=== PATIENT | female | born 1935 | race Caucasian/White ===

== ENCOUNTER 2021-05-02 16:06 | Emergency (ER) | payer OTHER ==
[~2021-05-02] VITALS: Ht 157.5 cm; Wt 73.0 kg
[2021-05-02] MEDS ORDERED: SULFAMETH/TRIMETH 800/160 MG 1 UDTAB TABLET PO ONE (16:30)
[2021-05-02] MEDS ORDERED: CEPHALEXIN MONOHYDRATE 500 MG CAPSULE PO ONE ×2 (16:30→16:38)
[2021-05-02] MEDS ORDERED: DEXAMETHASONE SOLN 5 MG/5 ML UDC PO ONE (16:30)
[2021-05-02] MEDS ORDERED: CEPH500T PO (16:32)
[2021-05-02] MEDS ORDERED: SULF1TAB48 PO (16:32)
--- NOTE | 2021-05-02 16:33 | NUR ---
TO ER BED 3, C/O INSECT BITES ON LOWER LEG YESTERDAY AND IS NOW SWELLING AND RED, SOME REDNESS ON R LEG, SEEN BY .
[2021-05-02] MEDS ORDERED: DEXAMETHASONE SOD PHOSPHATE 10 MG/ML VIAL ONE (16:37)
[2021-05-02] MEDS ORDERED: SULFAMETH/TRIMETH 800/160 MG 1 UDTAB TABLET ONE (16:38)
[2021-05-02] MEDS ORDERED: DEXAMETHASONE SOLN 5 MG/5 ML UDC ONE (16:41)
[2021-05-02] MEDS ORDERED: PIPERACILLIN /TAZOBACTAM 3.375 G in IV D5W 50 ML IV ONE (17:30)
[2021-05-02] MEDS ORDERED: VANCOMYCIN 1 GM in IV D5W 250 ML IV ONE (17:30)
[2021-05-02 17:43] LABS: BASOPHILS % (AUTO) 0.5 % (0.0-2.0); EOSINOPHILS % (AUTO) 1.2 % (0.0-6.0); HEMATOCRIT 36 % (33-45); HEMOGLOBIN 12.4 g/dL (11.5-14.8); LYMPHOCYTES # (AUTO) 1.3 K/uL (0.8-4.8); LYMPHOCYTES % (AUTO) 14.6 % (20.0-44.0); MEAN CORPUSCULAR HGB CONC 34 g/dl (31.0-36.0); MEAN CORPUSCULAR VOLUME 91 fL (82-100); MONOCYTES % (AUTO) 11.1 % (2.0-12.0); NEUTROPHILS # (AUTO) 6.7 K/uL (1.8-8.9); NEUTROPHILS % (AUTO) 72.6 % (43.0-81.0); PLATELET COUNT (AUTO) 165 K/uL (150-450); RED BLOOD CELL COUNT(AUTO) 3.93 MIL/uL (4.0-5.2); WHITE BLOOD COUNT (AUTO) 9.2 K/uL (4.3-11.0)
[2021-05-02 17:52] LABS: CALCIUM, SERUM 8.7 mg/dL (8.5-10.1); POTASSIUM 3.3 mmol/L (3.5-5.1)
--- NOTE | 2021-05-02 18:33 | NUR ---
[facility] ([facility], [facility]) [phone]
--- NOTE | 2021-05-02 19:44 | NUR ---
COVID SWAB SENT
--- NOTE | 2021-05-02 20:18 | NUR ---
FERNANDO VERDINP CONTACTED REGARDING TRANSFER
--- NOTE | 2021-05-02 20:38 | NUR ---
ARON LOWERY TALKING TO FERNANDO LOUIS MD REGARDING PT.
--- NOTE | 2021-05-02 22:39 | NUR ---
CALLED [facility]. ACCEPTED AT [facility], AWAITING BED ASSIGNMENT
--- NOTE | 2021-05-02 22:53 | NUR ---
FERNANDO CALLED WITH UPDATE TO [facility] US ONCE THEY RECIEVE A BED THE PHYSICAN WILL CALL FOR PANEL
--- NOTE | 2021-05-02 23:53 | NUR ---
TRANSFER INFORMATION PT ACCEPTED AT [facility] ACCEPTING MD WARD PHONE NUMBER FOR REPORT S [phone] [phone]
--- NOTE | 2021-05-03 00:06 | NUR ---
report given to karely benoit at [facility]
[2021-05-03 00:38] VITALS: BP 119/78
--- NOTE | 2021-05-03 00:45 | NUR ---
[facility] AT BED SIDE TO [employer] THE PT
== END 2021-05-03 00:59 | disposition short-term general hospital (02) ==
LOC: EDSEX 16:10 → ER 16:10
DX: L03.116 Cellulitis of left lower limb (principal); S80.862A Insect bite (nonvenomous), left lower leg, initial encounter; W57.XXXA Bitten or stung by nonvenomous insect and other nonvenomous arthropods, initial encounter; Y92.89 Other specified places as the place of occurrence of the external cause; Z88.6 Allergy status to analgesic agent; I10 Essential (primary) hypertension; Z86.69 Personal history of other diseases of the nervous system and sense organs; Z20.822 Contact with and (suspected) exposure to COVID-19
CPT/HCPCS: 36415; 80048; 83605; 84145; 85025; 87040 ×2; 87426; 96365; 96375; 99285; C9803; J2543; J3370; J7060; J8540; J1100